=== PATIENT | male | born 1990 | race Two or more races ===

== ENCOUNTER 2018-11-07 09:58 | Emergency (ER) | payer MEDICAID ==
[~2018-11-07] VITALS: Ht 152.4 cm; Wt 79.4 kg
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
[2018-11-07] MEDS ORDERED: CEFAZOLIN 1 GM in IV D5W 50 ML IV ONE (10:30)
--- NOTE | 2018-11-07 10:35 | NUR ---
SPOKE TO JAMIA ESPARZA DR CAR HOP.
[2018-11-07] MEDS ORDERED: ONDANSETRON HCL/PF 4 MG/2 ML VIAL ONE (10:55)
[2018-11-07] MEDS ORDERED: HYDROMORPHONE 1 MG/1 ML DISP.SYRIN ONE (10:55)
[2018-11-07] MEDS ORDERED: ONDANSETRON HCL/PF - ER 4 MG/2 ML VIAL IV ONE (11:00)
[2018-11-07] MEDS ORDERED: HYDROMORPHONE INJ 0.5 MG/0.5 ML SYRINGE IV ONE ×2 (11:00→12:00)
--- NOTE | 2018-11-07 11:02 | NUR ---
MEDICATED FOR PAIN PER ERMD ORDER, PT CHLOE WELL.
--- NOTE | 2018-11-07 11:30 | NUR ---
LA ORTHO PAGED CERTIFIED TECHNICIAN MORGAN ABBOTT
--- NOTE | 2018-11-07 11:39 | NUR ---
DR KING SPEAKING WITH DR GREEN
[2018-11-07 11:49] VITALS: BP 145/92
--- NOTE | 2018-11-07 11:50 | NUR ---
MEDICATED FOR PAIN PER ERMD ORDER, PT CHLOE WELL.
--- NOTE | 2018-11-07 12:03 | NUR ---
CALLED [facility] SPOKE TO [facility], INITIATED [employer] TRANSFER FOR HAND SURGEON. FAX [phone]
--- NOTE | 2018-11-07 13:03 | NUR ---
PER MAC REP MARIA FERNANDA THERE IS NO BED CAPACITY AT [facility] OR [facility] REF#[id number]
--- NOTE | 2018-11-07 14:12 | NUR ---
PT SIGNED AMA FORM, REFUSED TO BE TRANSFERRED & WANTS TO GO HOME. DR. KING EXPLANIED THE RISKS & CONSEQUENCES ON LEAVING AMA, JAZMIN, EMT ASSISTED W/ TRANSLATION. PT ACKNOWLEDGED WITH VERBAL UNDERSTANDING. IV removed. Catheter intact and site benign. Pressure and 4x4 applied to site. No bleeding noted. NAIL ON RT THUMB IS STILL INTACT UPON LEAVING ED.
== END 2018-11-07 14:16 | disposition left against medical advice (07) ==
LOC: ER 10:00
DX: S60.351A Superficial foreign body of right thumb, initial encounter (principal); Z85.47 Personal history of malignant neoplasm of testis; W29.4XXA Contact with nail gun, initial encounter; Y93.89 Activity, other specified; Y92.89 Other specified places as the place of occurrence of the external cause; Y99.0 Civilian activity done for income or pay
CPT/HCPCS: 73140; 96365; 96375; 96376; 99285; A6403; J0690; J1170; J7060; J2405